=== PATIENT | male | born 1945 | race Caucasian/White ===

== ENCOUNTER → 2020-08-10 | Outpatient (CLI) | payer MEDICARE, OTHER ==
[~2020-08-10] MED LIST: ASPIRIN E.C. 8181 MG PO; BRILINTA90 MG PO; CRESTOR 10MG10 MG PO; CRESTOR5 MG PO; IMDUR 30MG30 MG/TAB PO; K-DUR20 MEQ PO; LASIX 20MG TABL20 MG PO; PLAVIX 75MG TAB75 MG PO; PROCARDIA XL 3030 MG PO; SPIRIVA RE2.5 MCG/Ac IH; TRANDATE 100MG100 MG PO
== END ==
LOC: COL.RAD 10:16
DX: Q79.1 Other congenital malformations of diaphragm (principal)

== ENCOUNTER 2020-09-19 07:56 | Day surgery (SDC) | payer MEDICARE, OTHER ==
[~2020-09-19] VITALS: Ht 165.1 cm; Wt 78.2 kg
[2020-09-19] VITALS (392 sets, daily range): BP systolic 117–200; BP diastolic 74–110; PULSE 56–84; TEMP 97.5–98.3; O2SAT 91–97
[2020-09-19 08:40] LABS: HEMATOCRIT 49.7 % (42.0-52.0); HEMOGLOBIN 16.8 g/dl (13.5-18.0); MEAN CELL VOLUME 88 fl (80.0-100.0); MEAN CORPUSCULAR HEMOGLOBIN 30 pg (27.0-31.0); MEAN CORPUSCULAR HGB CONC 34 g/dl (33.0-37.0); MEAN PLATELET VOLUME 10.4 fl (7.4-10.4); PLATELET COUNT 159 K/mm3 (130-400); RED BLOOD COUNT 5.63 M/mm3 (4.20-5.60); REDCELL DISTRIBUTION WIDTH-CV 13.8 % (11.5-14.5)
[2020-09-19 08:46] LABS: INR 1.1 (0.8-3.0); PROTHROMBIN TIME 12.4 SECONDS (9.7-12.8)
[2020-09-19 08:49] LABS: CALCIUM 9.1 mg/dL (8.4-10.2); CREATININE, serum 1.11 (0.66-1.25); PARTIAL THROMBOPLASTIN TIME 29.7 SECONDS (26.0-37.0); POTASSIUM 3.9 mmol/L (3.4-5.0)
[2020-09-19] MEDS ORDERED: LASIX 20MG TABL20 MG PO (08:52)
[2020-09-19] MEDS ORDERED: PROCARDIA XL 3030 MG PO (08:52)
[2020-09-19] MEDS ORDERED: IMDUR 30MG30 MG/TAB PO (08:53)
[2020-09-19] MEDS ORDERED: CRESTOR5 MG PO (08:54)
[2020-09-19] MEDS ORDERED: ASPIRIN E.C. 8181 MG PO (08:54)
[2020-09-19] MEDS ORDERED: K-DUR20 MEQ PO (08:54)
[2020-09-19] MEDS ORDERED: TRANDATE 100MG100 MG PO (08:54)
[2020-09-19] MEDS ORDERED: SPIRIVA RE2.5 MCG/Ac IH (08:55)
[2020-09-20] VITALS (199 sets, daily range): BP systolic 98–1135; BP diastolic 50–97; PULSE 56–90; TEMP 97.8–98.2; O2SAT 91–98
[2020-09-20] MEDS ORDERED: CRESTOR 10MG10 MG PO (07:56)
[2020-09-20] MEDS ORDERED: BRILINTA90 MG PO (07:56)
== END 2020-09-20 10:40 | disposition home or self-care (01) ==
LOC: COL.CAR 07:56 → ICU 11:52 → COL.CAR 09-20 10:40
PROVIDERS: Internal Medicine Cardiovascular Disease
DX: I25.119 Atherosclerotic heart disease of native coronary artery with unspecified angina pectoris (principal); I48.0 Paroxysmal atrial fibrillation; I12.9 Hypertensive chronic kidney disease with stage 1 through stage 4 chronic kidney disease, or unspecified chronic kidney disease; N18.30 Chronic kidney disease, stage 3 unspecified; J44.9 Chronic obstructive pulmonary disease, unspecified; F17.210 Nicotine dependence, cigarettes, uncomplicated; E78.5 Hyperlipidemia, unspecified; G47.33 Obstructive sleep apnea (adult) (pediatric); E66.9 Obesity, unspecified; Z68.33 Body mass index [BMI] 33.0-33.9, adult; Z79.82 Long term (current) use of aspirin; Z79.899 Other long term (current) drug therapy; Z95.818 Presence of other cardiac implants and grafts; Z96.0 Presence of urogenital implants
CPT/HCPCS: OP; C1725; C1760; C1769; C1874; C1887; C1894; C9600; J0360; J1644; J1940; J2250; J3010; J7030

== ENCOUNTER 2020-11-30 09:15 | Day surgery (SDC) | payer MEDICARE, OTHER ==
[~2020-11-30] VITALS: Ht 165.2 cm; Wt 81.0 kg
[2020-11-30] VITALS (14 sets, daily range): BP systolic 132–178; BP diastolic 71–95; PULSE 51–83; TEMP 98–98.3
[~2020-11-30 09:15] MED LIST changes: -PLAVIX 75MG TAB75 MG PO
[2020-11-30 10:04] LABS: HEMATOCRIT 46.8 % (42.0-52.0); MEAN CELL VOLUME 88 fl (80.0-100.0); MEAN CORPUSCULAR HEMOGLOBIN 30 pg (27.0-31.0); MEAN CORPUSCULAR HGB CONC 34 g/dl (33.0-37.0); MEAN PLATELET VOLUME 10.1 fl (7.4-10.4); PLATELET COUNT 171 K/mm3 (130-400); RED BLOOD COUNT 5.34 M/mm3 (4.20-5.60); REDCELL DISTRIBUTION WIDTH-CV 14.4 % (11.5-14.5)
[2020-11-30 10:10] LABS: INR 1.1 (0.8-3.0); PROTHROMBIN TIME 12.4 SECONDS (9.7-12.8)
[2020-11-30 10:12] LABS: PARTIAL THROMBOPLASTIN TIME 27.9 SECONDS (26.0-37.0)
[2020-11-30] MEDS ORDERED: PLAVIX 75MG TAB75 MG PO (10:12)
[2020-11-30 10:16] LABS: CREATININE, serum 1.32 (0.66-1.25); POTASSIUM 3.9 mmol/L (3.4-5.0)
--- NOTE | 2020-11-30 10:39 | NUR ---
SEE MERGE FOR ALL MEDICATION ADMINISTRATION TIMES, INTRA AND POST SEDATION ASSESSMENTS
--- NOTE | 2020-11-30 15:42 | NUR ---
Dr. Cabezas notified that patient has a femstop in place but continues to have a slow bleed. Dressing now covered with blood despite the 35 mls in femstop. Orders to retrieve hemostat gauze given, new femstop at bedside. will round in approximately an hour.
--- NOTE | 2020-11-30 18:19 | NUR ---
Removed 30mls of air to femstop, no further bleeding visualized. Dressings changed. Pt sitting up to eat dinner, no bleeding visualized at this time. Pt eating and drinking. IVF discontinued.
[2020-12-01 00:19] VITALS: BP 117/45; PULSE 77; TEMP 98.3
[2020-12-01 00:20] VITALS: BP 154/46; PULSE 71; TEMP 97.7
[2020-12-01 00:44] VITALS: BP 156/46; PULSE 75; TEMP 97.7
[2020-12-01 03:47] VITALS: BP 150/88; PULSE 70; TEMP 98
[2020-12-01 03:49] VITALS: BP 150/88; PULSE 70; TEMP 98
--- NOTE | 2020-12-01 05:43 | NUR ---
PT LEFT FEMORAL SITE C/D/I, NO HEMATOMAS NOTED, PULSES STRONG, CAPILLARY REFILL WNL. PT A/OX4, DENIES PAIN,SOA,N,V,D. THIS NURSE REVIEWED SITE CARE AND POST OP S/S TO REPORT. PT VERBALIZES UNDERSTANDING. PT EXPRESSES NO ADDITIONAL NEEDS.ALL NEEDS MET. CALL LIGHT WITHIN REACH.
[2020-12-01 07:20] VITALS: BP 158/86; PULSE 92; TEMP 98
--- NOTE | 2020-12-01 09:34 | NUR ---
Initial visit; Patient preparing to be discharged. Vocational Psychologist wished him well and offered God's blessings.
--- NOTE | 2020-12-01 10:29 | NUR ---
PT DISCHARGED HOME PER ORDERS. d/C INSTRUCTIONS, MEDICATIONS AND FOLLOW UP REVIEWED WITH PT.QUESTIONS AND CONCERNS ADDRESSED. IV AND TELE REMOVED
--- NOTE | 2020-12-01 13:51 | NUR ---
Primary nurse was assisted with [id number] patient care by [employer] student Susana Oliveira and [employer] instructor dAriane Bullard MSN, RN
== END 2020-12-01 10:31 | disposition home or self-care (01) ==
LOC: COL.CAR 09:15 → MEDICAL 13:05 → COL.CAR 12-01 10:31
PROVIDERS: Internal Medicine Cardiovascular Disease
DX: I25.118 Atherosclerotic heart disease of native coronary artery with other forms of angina pectoris (principal); I25.2 Old myocardial infarction; I10 Essential (primary) hypertension; E78.5 Hyperlipidemia, unspecified; J44.9 Chronic obstructive pulmonary disease, unspecified; R06.00 Dyspnea, unspecified; Z20.822 Contact with and (suspected) exposure to COVID-19; Z79.82 Long term (current) use of aspirin; Z79.02 Long term (current) use of antithrombotics/antiplatelets; Z79.899 Other long term (current) drug therapy; Z95.5 Presence of coronary angioplasty implant and graft; Z85.46 Personal history of malignant neoplasm of prostate
CPT/HCPCS: OP; C1725; C1760; C1769; C1874; C1887; C1894; C9600; J1644; J2250; J3010; J7030; Q9967